=== PATIENT | female | born 1990 | race African-American/Black ===

== ENCOUNTER 2020-08-01 09:33 | Emergency (ER) | payer BC ==
--- NOTE | 2020-08-01 11:43 | EDM.PDOC ---
ED HPI GENERAL MEDICAL PROBLEM - General Chief Complaint: Respiratory Problem Stated Complaint: SOB/CHEST PAIN Time Seen by Provider: 08/01/20 11:01 Source of Information: Reports: Patient, RN Notes Reviewed History Limitations: Reports: No Limitations - History of Present Illness INITIAL COMMENTS - FREE TEXT/NARRATIVE: Patient is a 30-year-old female who presents to the ED for the evaluation of her chest discomfort. Patient notes that around 10 PM last night, she had a sharp stabbing chest pain in the left side of her chest. She notes she did not have any sort of injury to the area, and she does not think she is lifted anything heavier than normal. She states that the pain was so intense that she had to take short shallow breaths to not aggravate the pain. She states this persisted for about an hour, and she laid down and try to get some sleep. She states when she woke up this morning, the pain was better but she had residual left-sided chest pressure. She states that it does not radiate anywhere down her left arm or anything. She has had no fevers/chills, cough/shortness of breath other than being associated with the sharp bouts of pain. She did not take any Tylenol ibuprofen for the pain as she was uncertain if she should or if she should not. 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 She states that she has not been around anyone that is been sick that she is known of, and she states that she stays at home with her mainly. Left Upper Chest Pain Score (Numeric/FACES): 1 - Related Data Allergies Allergy/AdvReac Type Severity Reaction Status Date / Time No Known Allergies Allergy Verified 08/01/20 10:02 Home Meds: Home Meds . [No Known Home Meds] 08/01/20 [History] Past Medical History [employer] History: Reports: Spontaneous Social & Family History - Family History Family Medical History: No Pertinent Family History - Tobacco Use Tobacco Use Status *Q: Never Tobacco User Second Hand Smoke Exposure: No - Caffeine Use Caffeine Use: Reports: Coffee - Recreational Drug Use Recreational Drug Use: No ED ROS GENERAL - Review of Systems Review Of Systems: Comprehensive ROS is negative, except as noted in HPI. ED EXAM, GENERAL - Physical Exam Exam: See Below Exam Limited By: No Limitations General Appearance: Alert, WD/WN, No Apparent Distress Respiratory/Chest: No Respiratory Distress, Lungs Clear, Normal Breath Sounds, Other (chest tenderness to left chest, she states this does make the pressure worse) Cardiovascular: Normal Peripheral Pulses, Regular Rate, Rhythm, No Edema, No Murmur Extremities: Normal Inspection, Normal Capillary Refill Neurological: Alert, Oriented, Normal Cognition, No Motor/Sensory Deficits Psychiatric: Normal Affect, Normal Mood Skin Exam: Warm, Dry, Intact, Normal Color, No Rash #1 Interpretation EKG Date: 08/01/20 Time: 10:20 Rhythm: NSR Rate (Beats/Min): 66 [place]: Normal P-Wave: Present QRS: Normal ST-T: Normal QT: Normal Comparison: NA - No Prior EKG EKG Interpretation Comments: No obvious ischemia or acute ST changes noted, reviewed by myself and Dr. Farfan. Course - Vital Signs Last Recorded V/S: Last Vital Signs Temp 97.3 F 08/01/20 09:57 Pulse 71 08/01/20 09:57 Resp 20 08/01/20 09:57 BP 121/77 08/01/20 09:57 Pulse Ox 98 08/01/20 09:57 - Orders/Labs/Meds Orders: Active Orders 24 hr Category Date Time Status EKG 12 Lead [EKG Documentation Completion] [RC] STAT Care 08/01/20 10:36 Active Chest 1V Frontal [CR] Stat Exams 08/01/20 10:35 Taken - Re-Assessments/Exams Free Text/Narrative Re-Assessment/Exam: 08/01/20 11:40 Patient presents to the ED for the evaluation of her left-sided chest discomfort. Due to prolonged wait times, EKG and chest x-ray were performed, both of which are within normal limits. These were reviewed by myself and Dr. Farfan. At this time physical exam would deem this to be a left-sided musculoskeletal problem. Patient will not have any labs taken today. We will give her general recommendations and discharge her home at this time. I did go over strict return precautions; pt verbalized understanding. Departure - Departure Time of Disposition: 11:43 Disposition: Home, Self-Care 01 Condition: Good Clinical Impression: Costochondral chest pain - Discharge Information *PRESCRIPTION DRUG MONITORING PROGRAM REVIEWED*: No *COPY OF PRESCRIPTION DRUG MONITORING REPORT IN PATIENT MATT: No Instructions: Nonspecific Chest Pain, Adult, [id number] Referrals: PCP,None [Primary Care Provider] - Additional Instructions: You have been evaluated in the ED for your left sided chest pain/discomfort. Your x-ray demonstrated no sing of pneumonia at this time. Your EKG was also within normal limits; there is no sign of a heart attack at today's visit. Please use ice/heat as tolerated to the affected area. You may take Tylenol 500 mg or ibuprofen 600mg q6 hrs for pain relief. Please do so until you have a tolerable level of pain with activity. Do not exceed 4000mg Tylenol or 3200mg ibuprofen in a 24 hour time period. Please return to ED if your symptoms should change or worsen. Sepsis Event Note (ED) - Evaluation Sepsis Screening Result: No Definite Risk - Focused Exam Vital Signs: Vital Signs Temp Pulse Resp BP Pulse Ox 08/01/20 09:57 97.3 F 71 20 121/77 98 - My Orders Last 24 Hours: My Active Orders 08/01/20 10:36 EKG 12 Lead [EKG Documentation Completion] [RC] STAT - Assessment/Plan Last 24 Hours: My Active Orders 08/01/20 10:36 EKG 12 Lead [EKG Documentation Completion] [RC] STAT
--- NOTE | 2020-08-01 12:29 | CR ---
PROCEDURE INFORMATION: Exam: XR Chest, 1 View Exam date and time: 08/01/2020 10:25 AM Age: 30 years old Clinical indication: Shortness of breath; Patient HX: Chest tightness TECHNIQUE: Imaging protocol: XR of the chest Views: 1 view. COMPARISON: No relevant prior studies available. FINDINGS: Lungs: Unremarkable. No consolidation. Pleural space: Unremarkable. No pleural effusion. No pneumothorax. Heart/Mediastinum: Unremarkable. No cardiomegaly. Bones/joints: Unremarkable. IMPRESSION: Normal chest. Thank you for allowing us to participate in the care of your patient. Dictated and Authenticated by: Vita Stover MD 08/01/2020 12:08 PM Central Time ([place] & [place]) JESSE
== END 2020-08-01 12:05 | disposition home or self-care (01) ==
LOC: JD.ED 09:33
DX: R07.89 Other chest pain (principal)
CPT/HCPCS: 71045; 71045-26; 93005; 99285-25

== ENCOUNTER 2022-07-08 23:24 | Inpatient (IN) | payer OTHER ==
[2022-07-08] MEDS ORDERED: Oxytocin/Lactated Ringers 10 UNIT/1,000 ML BAG IV SCH ×2 (23:45)
[2022-07-08] MEDS ORDERED: Methylergonovine 0.2 MG/1 ML Amp IM PRN (23:54)
[2022-07-08] MEDS ORDERED: Lidocaine 1% 50 ML MDV INJECT PRN (23:54)
[2022-07-08] MEDS ORDERED: Ondansetron 4 MG/2 ML SDV IVPUSH PRN (23:54)
[2022-07-08] MEDS ORDERED: Calcium Carbonate 500 MG Tab.Chew PO PRN (23:54)
[2022-07-08] MEDS ORDERED: Nalbuphine HCl 10 MG/ 1ML Amp IVPUSH PRN (23:54)
[2022-07-08] MEDS ORDERED: Acetaminophen 325 MG Tab PO PRN (23:54)
[2022-07-09] MEDS ORDERED: Ampicillin 2 GM in Sodium Chloride 0.9% 100 ML IV ONE ×2
[2022-07-09] MEDS ORDERED: Bupivacaine 0.25% 10 ML SDV ONE
[2022-07-09] MEDS ORDERED: Lidocaine 1.5% with EPINEPHrine 1:200,000 5 ML Amp ONE ×2
[2022-07-09] MEDS: Lactated Ringers 1,000 ML IV SCH ×3 (00:35→12:15)
[2022-07-09] MEDS: Ampicillin 1 GM in Sodium Chloride 0.9% 100 ML IV SCH ×4 (04:39→15:56)
[2022-07-09] MEDS ORDERED: diphenhydrAMINE 50 MG/ML SDV IVPUSH PRN (08:11)
[2022-07-09] MEDS ORDERED: ePHEDrine 50 MG/ML SDV IVPUSH PRN (08:11)
[2022-07-09] MEDS ORDERED: Bupivacaine/fentaNYL/NS 100 ML Bag EPIDUR PRN (08:11)
[2022-07-09] MEDS ORDERED: fentaNYL 100 MCG/2 ML SDV EPIDUR PRN (08:11)
[2022-07-09] MEDS ORDERED: Methylergonovine 0.2 MG/1 ML Amp IM STA (18:18)
[2022-07-09] MEDS ORDERED: Docusate Sodium 100 MG Cap PO PRN (18:33)
[2022-07-09] MEDS ORDERED: Witch Hazel Medicated Pads 40/Jar TOP PRN (18:33)
[2022-07-09] MEDS ORDERED: Acetaminophen 325 MG Tab PO PRN (18:33)
[2022-07-09] MEDS ORDERED: Benzocaine/Menthol 20%-0.5% Spray 78 GM Cannister TOP PRN (18:33)
[2022-07-10] MEDS: Ibuprofen 600 MG Tab PO PRN ×2 (04:42→12:28)
== END 2022-07-11 13:00 | disposition home or self-care (01) | DRG 806 ==
LOC: JD.OBCHECK 23:24 → JD.OB 23:29 → JD.OBCHECK 23:53 → JD.OB 23:54 → UNDODISOB 07-09 11:42 → OBSVTOIN 07-09 17:53 → JD.OB 07-09 17:54
PROVIDERS: ADMIT Obstetrics & Gynecology; ATTEND Obstetrics & Gynecology
PROC: 10E0XZZ Delivery of Products of Conception, External Approach (ICD-10-PCS; principal; 2022-07-09)
PROC: 0KQM0ZZ Repair Perineum Muscle, Open Approach (ICD-10-PCS; 2022-07-09)
PROC: 10907ZC Drainage of Amniotic Fluid, Therapeutic from Products of Conception, Via Natural or Artificial Opening (ICD-10-PCS; 2022-07-09)
PROC: 3E0R3BZ Introduction of Anesthetic Agent into Spinal Canal, Percutaneous Approach (ICD-10-PCS; 2022-07-09)
PROC: 00HU33Z Insertion of Infusion Device into Spinal Canal, Percutaneous Approach (ICD-10-PCS; 2022-07-09)
DX: O99.824 Streptococcus B carrier state complicating childbirth (principal); Z37.0 Single live birth; Z3A.39 39 weeks gestation of pregnancy; O98.32 Other infections with a predominantly sexual mode of transmission complicating childbirth; O70.1 Second degree perineal laceration during delivery; O99.214 Obesity complicating childbirth; E66.9 Obesity, unspecified
CPT/HCPCS: 01967; 36415; 51702; 59025; 59409; 85027; 86592; 86850; 86900; 86901; A9270-GY; G0008; J0290; J2210; J2590; J3010; J3490; J7120

== ENCOUNTER 2025-07-20 09:34 | Emergency (ER) | payer OTHER ==
[2025-07-20] MEDS ORDERED: Sodium Chloride 0.9% 10 ML Syringe FLUSH PRN (10:10)
[2025-07-20 10:33] LABS: BASOPHILS ABSOLUTE AUTO 0.1 K/mm3 (0.0-0.2); BASOPHILS PERCENT AUTO 1.1 % (0.0-1.0); EOSINOPHILS ABSOLUTE AUTO 0.2 K/mm3 (0.0-0.4); EOSINOPHILS PERCENT AUTO 2.5 % (0.0-6.0); IMMATURE GRAN ABSOLUTE AUTO 0.04 K/mm3 (0.00-0.05); IMMATURE GRAN PERCENT AUTO 0.6 % (0.0-0.4); LYMPHOCYTES ABSOLUTE AUTO 2.4 K/mm3 (1.0-4.8); LYMPHOCYTES PERCENT AUTO 37.5 % (24.0-44.0); MEAN PLATELET VOLUME 10.3 fl (9.4-12.3); MONOCYTES ABSOLUTE AUTO 0.5 K/mm3 (0.0-0.8); MONOCYTES PERCENT AUTO 8.5 % (0.0-8.0); NEUTROPHILS ABSOLUTE AUTO 3.1 K/mm3 (1.8-7.7); NEUTROPHILS PERCENT AUTO 49.8 % (41.0-71.0); NRBC ABSOLUTE 0.00 (0.00-0.02); NRBC PERCENT 0.0 % (0.0-0.2); PLATELET COUNT,PLT 333 K/mm3 (150-400); RED BLOOD CELL COUNT 4.63 M/mm3 (4.10-5.30); WHITE BLOOD CELL COUNT,WBC 6.32 K/mm3 (3.9-11.3)
[2025-07-20 11:03] LABS: A/G RATIO 0.9 (1-2); ALANINE AMINOTRANSFERASE,ALT 19 U/L (14-59); ASPARTATE AMNIOTRANSFERASE,AST 10 U/L (15-37); BILIRUBIN TOTAL 0.7 mg/dL (0.2-1.0); BLOOD UREA NITROGEN,BUN 13 mg/dL (7-18); CARBON DIOXIDE,CO2 28 mEq/L (21-32); CHLORIDE,CL 105 mEq/L (98-107); CREATININE 0.9 mg/dL (0.55-1.02); EST CRCL DRUG DOSING (CG) 83.23 mL/min; ESTIMATED GFR 87 mL/min (>60); GLUCOSE RANDOM 85 mg/dL (70-99); POTASSIUM,K 4.0 mEq/L (3.5-5.1); PROTEIN TOTAL,TP 7.2 g/dl (6.4-8.2); SODIUM,NA 141 mEq/L (136-145)
[2025-07-20 11:12] LABS: TROPONIN I HIGH SENSITIVITY < 4 pg/mL (<=51)
[2025-07-20 12:37] LABS: APPEARANCE,URINE CLEAR (Clear); GLUCOSE,URINE NEGATIVE (Negative); OCCULT BLOOD,URINE NEGATIVE (Negative)
== END 2025-07-20 13:05 | disposition home or self-care (01) ==
LOC: JD.ED 09:34
DX: R07.89 Other chest pain (principal); E66.9 Obesity, unspecified; Z79.899 Other long term (current) drug therapy; Z68.31 Body mass index [BMI] 31.0-31.9, adult
CPT/HCPCS: 36415; 71045; 80053; 81001; 83690; 83735; 84443; 84484; 85025; 86140; 99285; A9270; 93010; 99284